=== PATIENT | female | born 1965 | race Caucasian/White ===

== ENCOUNTER 2019-01-29 12:17 | Observation (INO) ==
[2019-01-29] MEDS ORDERED: 0.9 % Sodium Chloride 1,000 ML IVC ONE ×2 (12:57→13:44)
[2019-01-29] MEDS ORDERED: methylPREDNISolone 125 MG/2 ML VIAL IVP ONE ×2 (12:59→14:55)
[2019-01-29 13:08] LABS: Basophils # 0.1 K/mcL (0.0-0.2); Basophils % 0.4 %; Eosinophils % 0.3 %; Hematocrit 44.1 % (35.3-44.9); Hemoglobin 14.3 g/dL (11.5-15.4); Immature Granulocytes % 0.4 % (0-4); Lymphocytes # 2.3 K/mcL (0.6-4.6); Lymphocytes % 19.9 %; Mean Corpuscular HGB Conc 32.4 g/dL (31.6-35.5); Mean Corpuscular Hemoglobin 29.9 pg (28.0-33.3); Mean Corpuscular Volume 92.1 fL (83.0-100.0); Mean Platelet Volume 10.1 fL (9.4-12.4); Monocytes # 0.8 K/mcL (0.0-1.3); Monocytes % 6.9 %; Neutrophils # 8.2 K/mcL (1.6-8.9); Platelet Count 278 K/mcL (140-400); Red Blood Count 4.79 M/mcL (3.82-4.97); Segmented Neutrophils % 72.1 %; White Blood Count 11.4 K/mcL (4.3-11.1)
[2019-01-29 13:10] LABS: Bilirubin,Urine Moderate (Negative); Blood,Urine Negative (Negative); Clarity,Urine Turbid (Clear); Color,Urine Orange (Yellow); Glucose,Urine (UA) Normal (Normal); Ketones,Urine Trace mg/dL (Negative); Leukocyte Esterase,Urine Small (Negative); Nitrite,Urine Positive (Negative); Protein,Urine 30 mg/dL (Neg-Trace); Specific Gravity,Urine 1.027 (1.010-1.025); Urobilinogen,Urine Normal (Normal)
[2019-01-29 13:11] LABS: Bacteria,Urine Few per hpf (None-Few); Squamous Epithelial Cell,Urine Many per lpf (None-Few); WBC,Urine 30-50 per hpf (0-3)
[2019-01-29 13:28] LABS: BUN/Creatinine Ratio 11 (6-26); Blood Urea Nitrogen 12 mg/dL (6-20); Calcium 9.4 mg/dL (8.6-10.3); Carbon Dioxide 24 mEq/L (23-29); Chloride 104 mEq/L (98-107); Glucose 115 mg/dL (70-105); Osmolality,Calculated 287 (280-300); Phosphorous 2.5 mg/dL (2.7-4.5); Potassium 3.4 mEq/L (3.5-5.1); Sodium 138 mEq/L (136-145); eGFR For African Americans > 60 (> 60); eGFR For Non-African Americans 52 (> 60)
[2019-01-29 13:29] LABS: Troponin I < 0.03 ng/mL (< 0.04)
[2019-01-29] MEDS ORDERED: cefTRIAXone 1,000 MG in Water for inj. (sterile) 10 ML IVP ONE (14:08)
[2019-01-29] MEDS ORDERED: 0.9 % Sodium Chloride 500 ML IVC ONE (14:59)
[2019-01-29] MEDS ORDERED: Naloxone 0.4 MG/ML INJ IVP PRN (15:15)
[2019-01-29 15:36] LABS: Alanine Aminotransferase 14 Units/L (7-52); Albumin 4.4 g/dL (3.5-5.7); Albumin/Globulin Ratio 1.5 (1.1-2.2); Alkaline Phosphatase 119 Units/L (34-104); Aspartate Amino Transferase 17 Units/L (13-39); Bilirubin,Direct 0.2 mg/dL (0.0-0.2); Bilirubin,Indirect 0.6 mg/dL (0.0-1.2); Bilirubin,Total 0.8 mg/dL (0.3-1.0); Total Protein 7.4 g/dL (6.4-8.9)
[2019-01-29] MEDS ORDERED: Celecoxib 100 MG CAPSULE PO PRN (17:49)
[2019-01-29] MEDS ORDERED: Albuterol 2.5 MG/3 ML NEBULIZER IH PRN (17:54)
[2019-01-29] MEDS: Ringers Solution, Lactated 1,000 ML IVC SCH (18:54)
[2019-01-29] MEDS: Budesonide/Formoterol 160/4.5 1 PUFF INH IH SCH (20:26)
[2019-01-29] MEDS: Baclofen 10 MG TABLET PO SCH (21:16)
[2019-01-29] MEDS: Pregabalin 50 MG CAPSULE PO SCH (21:16)
[2019-01-30 02:19] LABS: Basophils % 0.1 %; Hematocrit 36.6 % (35.3-44.9); Immature Granulocytes % 0.2 % (0-4); Lymphocytes # 1.2 K/mcL (0.6-4.6); Lymphocytes % 14.6 %; Mean Corpuscular HGB Conc 33.1 g/dL (31.6-35.5); Mean Corpuscular Hemoglobin 30.6 pg (28.0-33.3); Mean Corpuscular Volume 92.4 fL (83.0-100.0); Mean Platelet Volume 10.3 fL (9.4-12.4); Monocytes # 0.5 K/mcL (0.0-1.3); Monocytes % 5.3 %; Neutrophils # 6.7 K/mcL (1.6-8.9); Platelet Count 232 K/mcL (140-400); Red Blood Count 3.96 M/mcL (3.82-4.97); Red Cell Distribution Width 12.9 % (11.5-14.5); Segmented Neutrophils % 79.8 %; White Blood Count 8.4 K/mcL (4.3-11.1)
[2019-01-30 02:22] LABS: Hemoglobin 12.1 g/dL (11.5-15.4)
[2019-01-30 02:38] LABS: BUN/Creatinine Ratio 20 (6-26); Blood Urea Nitrogen 14 mg/dL (6-20); Calcium 9.1 mg/dL (8.6-10.3); Carbon Dioxide 23 mEq/L (23-29); Chloride 107 mEq/L (98-107); Glucose 267 mg/dL (70-105); Osmolality,Calculated 298 (280-300); Potassium 3.9 mEq/L (3.5-5.1); Sodium 139 mEq/L (136-145); eGFR For African Americans > 60 (> 60); eGFR For Non-African Americans > 60 (> 60)
[2019-01-30] MEDS: Ringers Solution, Lactated 1,000 ML IVC SCH ×3 (04:11→21:04)
[2019-01-30] MEDS: Budesonide/Formoterol 160/4.5 1 PUFF INH IH SCH ×2 (07:31→19:34)
[2019-01-30] MEDS: Cyanocobalamin (B-12) 1,000 MCG TABLET PO SCH (10:04)
[2019-01-30] MEDS: Acetaminophen 325 MG TABLET PO PRN ×2 (10:05→21:25)
[2019-01-30] MEDS: Pregabalin 50 MG CAPSULE PO SCH ×3 (10:05→21:05)
[2019-01-30] MEDS: Nicotine 14 MG PATCH.TD24 TD SCH (10:16)
[2019-01-30] MEDS: Baclofen 10 MG TABLET PO SCH ×3 (10:17→21:05)
[2019-01-30] MEDS: Loratadine 10 MG TABLET PO SCH (10:17)
[2019-01-30] MEDS: Cholecalciferol (D-3) 1,000 UNIT (25MCG) TABLET PO SCH (10:18)
[2019-01-30] MEDS ORDERED: Acetaminophen/Aspirin/Caffeine TABLET PO PRN (15:13)
[2019-01-30] MEDS: *HR* Rivaroxaban 10 MG TABLET PO SCH (15:14)
[2019-01-30] MEDS: cefTRIAXone 1,000 MG in Water for inj. (sterile) 10 ML IVP SCH (15:14)
[2019-01-30] MEDS ORDERED: GuaiFENesin Liq 200 MG/10 ML UDC PO PRN (21:20)
[2019-01-31] MEDS: Ringers Solution, Lactated 1,000 ML IVC SCH (05:07)
[2019-01-31] MEDS ORDERED: Chloraseptic Spray 177 ML BOTTLE MM PRN (05:20)
[2019-01-31] MEDS: Acetaminophen 325 MG TABLET PO PRN (06:07)
[2019-01-31 06:28] LABS: Basophils # 0.1 K/mcL (0.0-0.2); Basophils % 0.6 %; Eosinophils # 0.2 K/mcL (0.0-0.6); Eosinophils % 1.7 %; Hematocrit 33.1 % (35.3-44.9); Hemoglobin 11.3 g/dL (11.5-15.4); Immature Granulocytes % 0.3 % (0-4); Lymphocytes # 4.2 K/mcL (0.6-4.6); Lymphocytes % 48.2 %; Mean Corpuscular HGB Conc 34.1 g/dL (31.6-35.5); Mean Corpuscular Hemoglobin 30.3 pg (28.0-33.3); Mean Corpuscular Volume 88.7 fL (83.0-100.0); Mean Platelet Volume 10.4 fL (9.4-12.4); Monocytes # 0.6 K/mcL (0.0-1.3); Neutrophils # 3.6 K/mcL (1.6-8.9); Platelet Count 239 K/mcL (140-400); Red Blood Count 3.73 M/mcL (3.82-4.97); Red Cell Distribution Width 13.1 % (11.5-14.5); Segmented Neutrophils % 42.2 %; White Blood Count 8.6 K/mcL (4.3-11.1)
[2019-01-31 06:48] LABS: BUN/Creatinine Ratio 16 (6-26); Blood Urea Nitrogen 10 mg/dL (6-20); Calcium 8.5 mg/dL (8.6-10.3); Carbon Dioxide 24 mEq/L (23-29); Chloride 110 mEq/L (98-107); Glucose 110 mg/dL (70-105); Osmolality,Calculated 294 (280-300); Sodium 142 mEq/L (136-145); eGFR For African Americans > 60 (> 60); eGFR For Non-African Americans > 60 (> 60)
[2019-01-31] MEDS: Baclofen 10 MG TABLET PO SCH ×2 (09:42→14:48)
[2019-01-31] MEDS: Loratadine 10 MG TABLET PO SCH (09:42)
[2019-01-31] MEDS: Cyanocobalamin (B-12) 1,000 MCG TABLET PO SCH (09:43)
[2019-01-31] MEDS: Pregabalin 50 MG CAPSULE PO SCH ×2 (09:43→14:48)
[2019-01-31] MEDS: *HR* Rivaroxaban 10 MG TABLET PO SCH (09:43)
[2019-01-31] MEDS: Cholecalciferol (D-3) 1,000 UNIT (25MCG) TABLET PO SCH (09:43)
[2019-01-31] MEDS: cefTRIAXone 1,000 MG in Water for inj. (sterile) 10 ML IVP SCH (09:44)
[2019-01-31] MEDS: Nicotine 14 MG PATCH.TD24 TD SCH (09:44)
[2019-01-31 10:59] VITALS: BP 135/81
[2019-01-31] MEDS: Budesonide/Formoterol 160/4.5 1 PUFF INH IH SCH (11:02)
[2019-01-31] MEDS ORDERED: Venlafaxine XR (24 HR) 150 MG CAP.ER.24H PO SCH (12:00)
[2019-01-31] MEDS ORDERED: Fluticasone Propionate Nasal 50 MCG/SPRAY BOTTLE NS SCH (12:00)
[2019-01-31] MEDS ORDERED: Methylphenidate HCl 10 MG TABLET PO SCH (12:00)
[2019-02-01 07:29] LABS: Acinetobacter baumannii by PCR Not Detected (Not Detect); Candida albicans by PCR Not Detected (Not Detect); Candida glabrata by PCR Not Detected (Not Detect); Candida krusei by PCR Not Detected (Not Detect); Candida parapsilosis by PCR Not Detected (Not Detect); Candida tropicalis by PCR Not Detected (Not Detect); Enterobacter cloacae Cmplx PCR Not Detected (Not Detect); Enterobacteriaceae by PCR Not Detected (Not Detect); Enterococcus by PCR Not Detected (Not Detect); Escherichia coli by PCR Not Detected (Not Detect); Klebsiella oxytoca by PCR Not Detected (Not Detect); Klebsiella pneumoniae by PCR Not Detected (Not Detect); Proteus by PCR Not Detected (Not Detect); Pseudomonas aeruginosa by PCR Not Detected (Not Detect); Serratia marcescens by PCR Not Detected (Not Detect); Staphylococcus aureus by PCR Not Detected (Not Detect); Staphylococcus by PCR Not Detected (Not Detect); Streptococcus agalactiae(B)PCR Not Detected (Not Detect); Streptococcus by PCR Not Detected (Not Detect); Streptococcus pneumoniae PCR Not Detected (Not Detect); Streptococcus pyogenes (A) PCR Not Detected (Not Detect)
== END 2019-01-31 16:49 | disposition home or self-care (01) ==
LOC: 3ANU 12:17 → EMEROOARM 12:17 → SUATTDRO 15:36 → 3ANU 17:01 → UNDODISOB 01-30 14:59
PROVIDERS: ADMIT Internal Medicine; ATTEND Internal Medicine